=== PATIENT | male | born 1985 | race Caucasian/White ===

== ENCOUNTER 2024-11-27 11:12 | Emergency (ER) | payer OTHER, BC | END 2024-11-27 13:15 | disposition home or self-care (01) | LOC: JD.ED 11:12 | DX: S01.112A Laceration without foreign body of left eyelid and periocular area, initial encounter (principal); S40.212A Abrasion of left shoulder, initial encounter; S50.812A Abrasion of left forearm, initial encounter; S80.212A Abrasion, left knee, initial encounter; S50.811A Abrasion of right forearm, initial encounter; V29.99XA Rider (driver) (passenger) of other motorcycle injured in unspecified traffic accident, initial encounter | CPT/HCPCS: 73030-26-LT; 73030-LT; 73562-26-LT; 73562-LT; 99283; 99284 ==